=== PATIENT | male | born 1960 | race Caucasian/White ===

== ENCOUNTER 2023-09-02 20:07 | Emergency (ER) | payer MEDICAID, SELFPAY ==
[2023-09-02 20:34] VITALS: BP 109/52; PULSE 69; RESP 16; TEMP 37.1; O2SAT 99; BMI 20.3
--- NOTE | 2023-09-02 20:39 | PC.NURSE ---
pt changed over
--- NOTE | 2023-09-02 21:32 | MHC.RECOVSUP ---
? Reason for consult:ETOH o? Current location:[facility]? o? Identified substance use concern:? -? Support ?? Intervention: o? Community resources provided ? Plan: o? Follow up tomorrow? ? Additional information:LAST attempted to meet with this pt but he was sedated or intoxicated as he wasn't waking up to speak to me. LAST provided this pt with recovery resources and business card. Provider informed that [facility] left a pamphlet and business card with pt's belongings.
--- NOTE | 2023-09-02 21:52 | ED.ALCOHOL ---
HPI - Alcohol General Chief Complaint: ETOH/Substance Use Stated Complaint: Intoxicated Time Seen by Provider: 09/02/23 20:32 Source: patient Mode of arrival: EMS Limitations: no limitations History of Present Illness HPI narrative: Patient comes to the emergency room seeking detox for alcohol abuse. Patient states that he drank alcohol prior to arriving in the emergency room, patient states eye he usually drinks 30 beers and 7 upset they. Patient denies suicidal homicidal ideation Related Data Allergies Allergy/AdvReac Type Severity Reaction Status Date / Time No Known Allergies Allergy Unverified 08/15/20 18:58 [No Known Allergies*] Review of Systems Review of Systems: Constitutional : No Weight loss, No Fever, No Chills, No Night Sweats, No Fatigue, No Malaise ENT/Mouth : No Hearing loss, No Ear Pain, No Nasal Congestion, No Sinus Pain, No Hoarseness, No sore throat, No Rhinorrhea, No Swallowing Difficulty Eyes: No Eye Pain, No Swelling, No Redness, No Foreign Body, No Discharge, No Vision Changes Cardiovascular : No Chest Pain, No SOB, No Dyspnea on Exertion, No Orthopnea, No Edema, No Palpitations Respiratory : No Cough, No Sputum, No Wheezing, No Smoke Exposure, No Dyspnea Gastrointestinal : No Nausea, No Vomiting, No Diarrhea, No Constipation, No abdominal Pain, No Hematochezia, No Melena Genitourinary : no irregular bleeding, No Dysuria, No Urinary Frequency, No Hematuria, No Urinary Incontinence, No Urgency, No Flank Pain, No Urinary Flow Changes, No Hesitancy Musculoskeletal : No joint pain, No Myalgias, No Joint Swelling Skin : No Skin Lesions, No rash Neuro : No Weakness, No Numbness, No Paresthesias, No Loss of Consciousness, No Dizziness, No Headache Psych : No Anxiety/Panic, No Depression, No SI/HI/AH/VH, admits to alcohol abuse and dependence Heme/Lymph: No Bruising, No Bleeding,No Lymphadenopathy Endocrine : No Polyuria, No Polydipsia, No Temperature Intolerance PMF Past Medical History Medical History (Updated 09/02/23 @ 21:56 by Kiara Mcneill MD) Alcohol dependence Social History Social History Alcohol intake: current Smoked in Last 30 Days: Yes Use of substances other than those prescribed or required for medical reasons: No Physical Exam ED Vital Signs: Vital Signs - 24 hr 09/02/23 20:34 Temperature 98.8 F Pulse Rate 69 Respiratory Rate 16 Blood Pressure 109/52 L Pulse Oximetry 99 Oxygen Delivery Method Room Air BMI result Body Mass Index 20.3 Const Other: Appearance: Alert. Oriented X3. No acute distress. Eyes: Pupils equal, round and reactive to light. ENT: Pharynx normal. Neck: Normal inspection. Neck supple. No lymph nodes noted. No crepitus CVS: Normal heart rate and rhythm. Pulses normal. Normal S1 and S2 Respiratory: No respiratory distress. Breath sounds normal. No Wheezing. No rales Abdomen: Soft and nontender. No rigidity. No distention. Skin: Skin warm and dry. Normal skin color. Normal skin turgor. Extremities: No lower extremity edema. No Lacerations. No Rash Neuro: Oriented X 3. No motor deficit. No sensory deficit. Moving all extremities. No slurred speech. CN 2 through 12 grossly intact Psych: calm, cooperative, normal affect Course Course Course Narrative: -also patient has labs pending -care team consult pending -physician observation started at 21:00 Medical Decision Making Differential Diagnosis Differential Diagnoses: The differential diagnosis associated with the presentation includes (Alcohol intoxication, alcohol dependence, polysubstance abuse) Admission/Observation Consideration of admission/observation: Escalation of care including admission/observation considered (Patient will remain under observation under care team evaluate the patient, we will try to help the patient find a detox bed) Discharge Plan Discharge Clinical Impression: Alcoholic intoxication Patient Disposition: Still a Patient
[2023-09-03 01:10] VITALS: BP 114/66; PULSE 87; RESP 18; TEMP 37.1; O2SAT 98
[2023-09-03 06:07] VITALS: BP 143/76; PULSE 62; RESP 16; TEMP 37.2; O2SAT 97
--- NOTE | 2023-09-03 08:20 | MHC.RECOVRN ---
Pts referral sent to [facility].
[2023-09-03 10:18] VITALS: BP 143/79; PULSE 67; RESP 16; TEMP 36.6
--- NOTE | 2023-09-03 10:19 | MHC.EDTECH ---
Pt given a cup to provide a urine sample.
--- NOTE | 2023-09-03 11:25 | MHC.RECOVSUP ---
Addendum entered by Gamal Elizondo 09/03/23 12:44: No [facility] beds available at this time. Provider aware. Original Note: [facility] bedsearch still in process, [facility] no [facility] fax sent [facility] no answer [facility] no answer cold faxed referral? [facility] no beds [place] no beds [place] ?pt initiated waitlist only?? [facility] ?pt initiated only? Waiting to hear back from [facility] and [facility].
== END 2023-09-03 15:55 | disposition home or self-care (01) ==
PROVIDERS: Emergency Provider Emergency Medicine; PCP Internal Medicine
DX: F10.220 Alcohol dependence with intoxication, uncomplicated (principal); Y90.0 Blood alcohol level of less than 20 mg/100 ml
CPT/HCPCS: 36415; 80048; 80076; 80307; 83735; 85025; 99284